=== PATIENT | female | born 1950 | race Caucasian/White ===

== ENCOUNTER 2017-09-01 16:01 | Inpatient (IN) | payer OTHER, MEDICARE ==
[~2017-09-01] VITALS: Ht 162.6 cm; Wt 126.1 kg
[~2017-09-01 16:01] MED LIST: CLEOCIN300 MG PO; ROXICODONE5 MG PO
[2017-09-01 17:08] LABS: EOSINOPHIL COUNT 0.2 K/uL (0-0.3); IMMATURE GRANULOCYTE (%) 0.5 % (0.0-0.7); IMMATURE GRANULOCYTE COUNT 0.1 K/uL; INSTRUMENT ABS NEUTROPHIL CT 8.5 K/uL; LYMPHOCYTE COUNT 1.9 K/uL (1.0-2.8); MCH 29.2 PG (29.0-34.0); MCHC 32.6 G/DL (30.0-36.0); MCV 89.7 FL (83-99); MEAN PLAT.VOLUME 9.2 uM^3 (9.5-12.4); MONOCYTE COUNT 0.8 K/uL (0-0.8); NEUTROPHIL (%) 73.9 % (45-76); NEUTROPHIL COUNT 8.5 K/uL (1.8-6.4); PLATELET COUNT 232 K/uL (156-360); RBC DIS.WIDTH-CV 14.3 % (11.8-14.6); RBC DIS.WIDTH-SD 46.3 % (39-53); RED BLOOD COUNT 4.35 M/uL (3.80-5.20); WHITE BLOOD COUNT 11.5 K/uL (4.1-10.2)
[2017-09-01 17:19] LABS: CHLORIDE 107 mEq/L (99-109); POTASSIUM 4.1 mEq/L (3.7-5.4); SODIUM 141 mEq/L (136-147)
[2017-09-01 17:22] LABS: GLUCOSE 161 mg/dL (70-99)
[2017-09-01 17:23] LABS: ANION GAP 12 MEQ/L (2-14)
[2017-09-01 17:24] LABS: TOTAL BILIRUBIN 0.7 mg/dL (0.0-1.0)
[2017-09-01 17:25] LABS: ALKALINE PHOSPHATASE 86 IU/L (3-129); GFR ESTIMATE (CALCULATED) > 59 mL/min/
[2017-09-01 17:26] LABS: UREA NITROGEN (BUN) 13 mg/dL (9-23)
[2017-09-01 17:43] LABS: LIPASE 6 U/L (1.0-51.0)
[2017-09-02] VITALS (7 sets, daily range): BP systolic 118–148; BP diastolic 57–69
[2017-09-02 01:01] LABS: POINT-OF-CARE METER ID UU13113675
[2017-09-02] MEDS ORDERED: INDERAL XL80 MG PO (05:59)
[2017-09-02] MEDS ORDERED: INDERAL40 MG PO (06:02)
[2017-09-02] MEDS ORDERED: GABAPENTIN300 MG PO (06:03)
[2017-09-02] MEDS ORDERED: UROXATRAL10 MG PO (06:05)
[2017-09-02] MEDS ORDERED: ST. JOSEPH ASPI81 MG PO (06:06)
[2017-09-02] MEDS ORDERED: BUPROPION HCL100 MG PO (06:07)
[2017-09-02] MEDS ORDERED: MULTIPLE VITAM1 EACH PO (06:09)
[2017-09-02] MEDS ORDERED: METHADONE10 MG PO (06:10)
[2017-09-02] MEDS ORDERED: METFORMIN HCL500 M4 PO (06:11)
[2017-09-02] MEDS ORDERED: VITAMIN D31000 UNIT PO (06:13)
[2017-09-02] MEDS ORDERED: PERCOCET 10/1 TABLET PO (06:15)
[2017-09-02] MEDS ORDERED: COLACE100 MG PO (06:16)
[2017-09-02] MEDS ORDERED: LASIX40 MG PO (06:18)
[2017-09-02] MEDS ORDERED: COLESTID1 GM PO (06:24)
[2017-09-02] MEDS ORDERED: KLONOPIN0.5 M1 PO (06:25)
[2017-09-02] MEDS ORDERED: MAXALT10 MG PO (06:26)
[2017-09-02 06:35] LABS: HEMATOCRIT 35.1 % (36.0-46.0); MCH 27.8 PG (29.0-34.0); MCHC 31.3 G/DL (30.0-36.0); MCV 88.9 FL (83-99); MEAN PLAT.VOLUME 9.4 uM^3 (9.5-12.4); PLATELET COUNT 234 K/uL (156-360); RBC DIS.WIDTH-CV 14.1 % (11.8-14.6); RBC DIS.WIDTH-SD 45.6 % (39-53); RED BLOOD COUNT 3.95 M/uL (3.80-5.20); WHITE BLOOD COUNT 11.7 K/uL (4.1-10.2)
[2017-09-02 07:08] LABS: ANION GAP 10 MEQ/L (2-14); CHLORIDE 104 MEQ/L (99-109); GFR ESTIMATE (CALCULATED) > 59 mL/min/; GLUCOSE 192 mg/dL (70-99); POTASSIUM 4.6 MEQ/L (3.7-5.4); SAMPLE HEMOLYSIS CHECK 0; SAMPLE ICTERIC CHECK 0; SAMPLE LIPEMIA CHECK 0; SODIUM 139 MEQ/L (136-147); UREA NITROGEN (BUN) 9 mg/dL (9-23)
[2017-09-02] MEDS ORDERED: GAS-X125 M1 PO (12:15)
[2017-09-03 03:25] VITALS: BP 144/65
[2017-09-03 08:06] VITALS: BP 177/81
[2017-09-03 11:55] VITALS: BP 142/65
[2017-09-03 17:23] VITALS: BP 145/67
[2017-09-03 19:05] VITALS: BP 150/70
[2017-09-03 23:10] VITALS: BP 144/67
[2017-09-04 02:55] VITALS: BP 149/69
[2017-09-04 07:59] VITALS: BP 148/66
[2017-09-04 11:28] VITALS: BP 144/88
[2017-09-04 11:36] VITALS: BP 146/70
[2017-09-04 12:18] LABS: HEMATOCRIT 36.1 % (36.0-46.0); MCH 28.3 PG (29.0-34.0); MCHC 31.3 G/DL (30.0-36.0); MCV 90.3 FL (83-99); PLATELET COUNT 224 K/uL (156-360); RBC DIS.WIDTH-CV 14.2 % (11.8-14.6); RBC DIS.WIDTH-SD 47.7 % (39-53); WHITE BLOOD COUNT 8.7 K/uL (4.1-10.2)
[2017-09-04 12:42] LABS: ANION GAP 10 MEQ/L (2-14); CHLORIDE 104 MEQ/L (99-109); GFR ESTIMATE (CALCULATED) > 59 mL/min/; GLUCOSE 163 mg/dL (70-99); POTASSIUM 3.8 MEQ/L (3.7-5.4); SAMPLE HEMOLYSIS CHECK 0; SAMPLE ICTERIC CHECK 0; SAMPLE LIPEMIA CHECK 0; SODIUM 141 MEQ/L (136-147); UREA NITROGEN (BUN) 4 mg/dL (9-23)
[2017-09-04 15:54] VITALS: BP 1748/76; BP 178/76
[2017-09-04 20:34] VITALS: BP 140/70
[2017-09-05] VITALS (7 sets, daily range): BP systolic 131–180; BP diastolic 60–80
[2017-09-05 07:29] LABS: ANION GAP 12 MEQ/L (2-14); CHLORIDE 107 MEQ/L (99-109); POTASSIUM 3.8 MEQ/L (3.7-5.4); SAMPLE HEMOLYSIS CHECK 0; SAMPLE ICTERIC CHECK 0; SAMPLE LIPEMIA CHECK 0; SODIUM 143 MEQ/L (136-147)
[2017-09-05 07:41] LABS: HEMATOCRIT 37.4 % (36.0-46.0); MCH 29.1 PG (29.0-34.0); MCHC 32.4 G/DL (30.0-36.0); MCV 89.9 FL (83-99); RBC DIS.WIDTH-CV 14.2 % (11.8-14.6); RBC DIS.WIDTH-SD 46.5 % (39-53); RED BLOOD COUNT 4.16 M/uL (3.80-5.20); WHITE BLOOD COUNT 7.6 K/uL (4.1-10.2)
[2017-09-05 08:00] LABS: GLUCOSE 137 mg/dL (70-99); UREA NITROGEN (BUN) 4 mg/dL (9-23)
[2017-09-05 08:12] LABS: HEMATOLOGY COMMENT 1 UNABLE TO REPORT
[2017-09-05 08:19] LABS: PLATELET COUNT UNABLE TO REPORT K/uL (156-360)
[2017-09-05 09:43] LABS: GFR ESTIMATE (CALCULATED) > 59 mL/min/
[2017-09-05 16:16] LABS: POINT-OF-CARE METER ID UU14314084
[2017-09-05 21:26] LABS: POINT-OF-CARE METER ID UU14208750
[2017-09-06 03:48] VITALS: BP 162/74
[2017-09-06 06:51] LABS: POINT-OF-CARE METER ID UU14314084
[2017-09-06 07:33] VITALS: BP 141/68
[2017-09-06] MEDS ORDERED: CIPROFLOXACIN500 M1 PO (08:40)
== END 2017-09-06 12:15 | disposition home or self-care (01) | DRG 354 ==
LOC: EME 16:01 → 2EAST 22:29 → EDOF 22:29 → 2SOUTH 09-02 00:04 → ENRESERV 09-02 00:38 → 2EAST 09-02 02:51
PROVIDERS: Physician Assistant; Surgery
PROC: 0WUF0JZ Supplement Abdominal Wall with Synthetic Substitute, Open Approach (ICD-10-PCS; principal; 2017-09-02)
DX: K43.0 Incisional hernia with obstruction, without gangrene (principal); Z96.652 Presence of left artificial knee joint; E66.01 Morbid (severe) obesity due to excess calories; E11.9 Type 2 diabetes mellitus without complications; E87.2 Acidosis; I10 Essential (primary) hypertension; Z90.12 Acquired absence of left breast and nipple; Z68.42 Body mass index [BMI] 45.0-49.9, adult; Z85.3 Personal history of malignant neoplasm of breast; Z87.891 Personal history of nicotine dependence
CPT/HCPCS: 74176; 80048; 80053; 82565; 82948; 83605; 83690; 85025; 85027; 88304; 93005; 99281; 99285; C1753; C1781; J0330; J0744; J1100; J1170; J1650; J2270; J2405; J3010; J3370; J7030; J7040; J7050; S0028